=== PATIENT | male | born 1990 | race Caucasian/White ===

== ENCOUNTER 2022-04-21 08:35 | Emergency (ER) | payer SELFPAY ==
[2022-04-21] MEDS ORDERED: Acetaminophen/HYDROcodone 325-10 MG Tab PO ONE (10:24)
[2022-04-21] MEDS ORDERED: Amoxicillin/Clavulanate K 875-125 MG Tab PO ONE (10:24)
== END 2022-04-21 10:52 | disposition home or self-care (01) ==
LOC: EDBD → JD.ED 08:35
DX: K04.7 Periapical abscess without sinus (principal)
CPT/HCPCS: 99282; A9270

== ENCOUNTER 2022-04-23 12:40 | Emergency (ER) | payer SELFPAY | END 2022-04-23 13:37 | disposition home or self-care (01) | LOC: EDBD 12:40 → JD.ED 12:40 | DX: K04.7 Periapical abscess without sinus (principal) | CPT/HCPCS: 99282 ==

== ENCOUNTER 2022-06-28 17:16 | Emergency (ER) | payer OTHER | END 2022-06-28 18:44 | disposition home or self-care (01) | LOC: JD.ED 17:16 | DX: S39.012A Strain of muscle, fascia and tendon of lower back, initial encounter (principal); Z72.0 Tobacco use | CPT/HCPCS: 99282; 99283 ==

== ENCOUNTER 2022-07-06 08:59 | Emergency (ER) | payer BC, OTHER | END 2022-07-06 10:12 | disposition home or self-care (01) | LOC: JD.ED 08:59 | DX: S39.012A Strain of muscle, fascia and tendon of lower back, initial encounter (principal); F17.210 Nicotine dependence, cigarettes, uncomplicated; X50.9XXA Other and unspecified overexertion or strenuous movements or postures, initial encounter | CPT/HCPCS: 99282; 99283 ==

== ENCOUNTER 2022-09-20 21:52 | Emergency (ER) | payer BC ==
[2022-09-20 23:11] LABS: BASOPHILS ABSOLUTE AUTO 0.01 K/mm3 (0.01-0.08); BASOPHILS PERCENT AUTO 0.1 % (0.1-1.2); EOSINOPHILS ABSOLUTE AUTO 0.06 K/mm3 (0.04-0.54); EOSINOPHILS PERCENT AUTO 0.6 (0.8-7.0); HEMATOCRIT 46.5 % (40.1-51.0); HEMOGLOBIN 15.7 gm/dl (13.7-17.5); IMMATURE GRAN ABSOLUTE AUTO 0.01 K/mm3 (0.00-0.10); IMMATURE GRAN PERCENT AUTO 0.1 % (<=1.0); LYMPHOCYTES ABSOLUTE AUTO 2.28 K/mm3 (1.32-3.57); MEAN CORPUSCULAR HEMOGLOBIN 31.3 pg (25.7-32.2); MEAN CORPUSCULAR HGB CONC 33.8 g/dl (32.2-35.5); MEAN CORPUSCULAR VOLUME 92.8 fl (79.0-92.2); MEAN PLATELET VOLUME 9.7 fl (9.4-12.3); MONOCYTES ABSOLUTE AUTO 0.61 K/mm3 (0.30-0.82); MONOCYTES PERCENT AUTO 6.1 % (5.3-12.2); NEUTROPHILS ABSOLUTE AUTO 6.95 K/mm3 (1.78-5.38); NEUTROPHILS PERCENT AUTO 70.1 % (34.0-67.9); PLATELET COUNT,PLT 226 K/mm3 (163-337); RED BLOOD CELL COUNT 5.01 M/mm3 (4.63-6.08); WHITE BLOOD CELL COUNT,WBC 9.92 K/mm3 (4.23-9.07)
[2022-09-20 23:43] LABS: A/G RATIO 1.2 (1-2); ALBUMIN 3.7 g/dl (3.4-5.0); ANION GAP 12.6 (5-15); BILIRUBIN TOTAL 0.5 mg/dL (0.2-1.0); CALCIUM 8.5 mg/dL (8.5-10.1); EST CRCL DRUG DOSING (CG) 116.4 mL/min; ETHANOL BLOOD MEDICAL 0.01 gm% (0.00); POTASSIUM,K 3.6 mEq/L (3.5-5.1); PROTEIN TOTAL,TP 6.8 g/dl (6.4-8.2); TSH 1.564 uIU/mL (0.358-3.74)
[2022-09-20 23:49] LABS: BARBITURATE SCREEN,URINE NEGATIVE (CUTOFF=200); BENZODIAZEPINES SCREEN,URINE NEGATIVE (CUTOFF=150); BUPRENORPHINE SCREEN,URINE NEGATIVE (CUTOFF=10); METHADONE SCREEN, URINE NEGATIVE (CUT0FF=200); METHAMPHETAMINES SCREEN, URINE NEGATIVE (CUTOFF=500); OXYCODONE SCREEN,URINE NEGATIVE (CUT0FF=100); PROPOXYPHENE SCREEN,URINE NEGATIVE (CUTOFF=300); THC SCREEN,URINE 20 NG/ML NEGATIVE (CUTOFF=50)
[2022-09-20 23:51] LABS: AMPHETAMINES SCREEN, URINE NEGATIVE (CUTOFF=500)
[2022-09-21] MEDS ORDERED: Sertraline 50 MG Tab PO ONE (01:53)
== END 2022-09-21 02:28 | disposition other institution (70) ==
LOC: JD.ED 21:52
DX: R45.851 Suicidal ideations (principal); F32.A Depression, unspecified; F17.210 Nicotine dependence, cigarettes, uncomplicated; Z79.899 Other long term (current) drug therapy
CPT/HCPCS: 36415; 80053; 80143; 80179; 80306; 80307; 84443; 85025; 99285; A9270

== ENCOUNTER 2022-09-22 14:52 | Emergency (ER) | payer SELFPAY ==
[2022-09-22] MEDS ORDERED: LORazepam 1 MG Tab PO ONE (15:26)
== END 2022-09-22 17:15 | disposition home or self-care (01) ==
LOC: JD.ED 14:52
DX: F10.930 Alcohol use, unspecified with withdrawal, uncomplicated (principal); Z79.899 Other long term (current) drug therapy
CPT/HCPCS: 99283; A9270; 99284

== ENCOUNTER 2022-10-21 12:10 | Emergency (ER) | payer OTHER, BC | END 2022-10-21 13:50 | disposition home or self-care (01) | LOC: JD.ED 12:10 | DX: M25.562 Pain in left knee (principal); Z79.899 Other long term (current) drug therapy | CPT/HCPCS: 73562-26-LT; 73562-LT; 99283 ==

== ENCOUNTER 2022-11-07 09:48 | Emergency (ER) | payer OTHER, BC | END 2022-11-07 10:30 | disposition home or self-care (01) | LOC: JD.ED 09:48 | DX: M62.830 Muscle spasm of back (principal); F17.210 Nicotine dependence, cigarettes, uncomplicated; X50.1XXA Overexertion from prolonged static or awkward postures, initial encounter | CPT/HCPCS: 99283 ==

== ENCOUNTER 2022-11-17 10:50 | Emergency (ER) | payer OTHER, BC | END 2022-11-17 12:00 | disposition home or self-care (01) | LOC: JD.ED 10:50 | DX: M54.6 Pain in thoracic spine (principal) | CPT/HCPCS: 99283 ==

== ENCOUNTER 2023-01-08 13:56 | Emergency (ER) | payer BC, OTHER ==
[2023-01-08] MEDS ORDERED: Ketorolac 60 MG/2 ML SDV IM ONE (14:49)
== END 2023-01-08 15:45 | disposition home or self-care (01) ==
LOC: JD.ED 13:56
DX: M54.50 Low back pain, unspecified (principal); F17.210 Nicotine dependence, cigarettes, uncomplicated; W00.0XXA Fall on same level due to ice and snow, initial encounter
CPT/HCPCS: 72070; 72100; 96372; 99283; J1885

== ENCOUNTER 2023-08-08 17:24 | Emergency (ER) | payer BC, OTHER | END 2023-08-08 18:16 | disposition home or self-care (01) | LOC: JD.ED 17:24 | DX: K08.89 Other specified disorders of teeth and supporting structures (principal); Z79.899 Other long term (current) drug therapy | CPT/HCPCS: 99282 ==